=== PATIENT | female | born 1980 | race Asian ===

== ENCOUNTER → 2016-10-30 | Outpatient (CLI) | payer BC ==
[2016-10-30 16:36] LABS: URINE APPEARANCE CLEAR (CLEAR); URINE BILIRUBIN NEG (NEG); URINE COLOR YELLOW; URINE NITRITE NEG (NEG); URINE SPECIFIC GRAVITY 1.027 (1.000-1.030); UROBILINOGEN NEG (NEG)
[2016-10-30 16:46] LABS: MANUAL MICROSCOPIC REQUIRED? NO; REVIEW REQ? NO
[2016-11-02 09:25] LABS: CHLAMYDIA TRACH RNA*** NOT DETECTED (NOT DETECTED); GC (NEIS GONORRHOEAE)RNA** NOT DETECTED (NOT DETECTED)
== END | disposition home or self-care (01) ==
LOC: C.LABSPEC 15:56
PROVIDERS: ATTEND Obstetrics & Gynecology
DX: O09.299 Supervision of pregnancy with other poor reproductive or obstetric history, unspecified trimester (principal)

== ENCOUNTER → 2017-03-26 | Outpatient (CLI) | payer BC ==
[2017-03-26 19:20] LABS: URINE APPEARANCE CLEAR (CLEAR); URINE BILIRUBIN NEG (NEG); URINE COLOR DK YELLOW; URINE EPITHELIAL CELL AUTO >30 /lpf (0-5); URINE NITRITE NEG (NEG); URINE PH 6.5 (4.5-7.5); URINE SPECIFIC GRAVITY 1.024 (1.000-1.030); UROBILINOGEN NEG (NEG)
[2017-03-26 19:27] LABS: MANUAL MICROSCOPIC REQUIRED? NO; REVIEW REQ? NO
== END | disposition home or self-care (01) ==
LOC: C.LABSPEC 17:58
PROVIDERS: ATTEND Obstetrics & Gynecology
DX: Z34.03 Encounter for supervision of normal first pregnancy, third trimester (principal); Z3A.00 Weeks of gestation of pregnancy not specified

== ENCOUNTER 2017-04-27 16:54 | Outpatient (CLI) | payer OTHER ==
[2017-06-11] MEDS ORDERED: SERT25TA PO (09:11)
[2017-06-11] MEDS ORDERED: PRENTAB26 PO (09:11)
[2017-06-11] MEDS ORDERED: INSU100I (09:11)
[2017-06-11] MEDS ORDERED: INSU1INJ23 (09:11)
[2017-06-14] MEDS ORDERED: MISC-836 (07:27)
[2017-06-16] MEDS ORDERED: OXYC-57 PO (07:00)
[2017-06-16] MEDS ORDERED: FERR1TAB23 PO (07:13)
== END 2017-04-27 18:46 | disposition home or self-care (01) ==
LOC: C.OPB 16:54 → C.LD 16:54 → C.OPB 18:46
PROVIDERS: ATTEND Obstetrics & Gynecology
DX: O26.899 Other specified pregnancy related conditions, unspecified trimester (principal); Z3A.00 Weeks of gestation of pregnancy not specified

== ENCOUNTER → 2017-05-19 | Outpatient (CLI) | payer OTHER | END | disposition home or self-care (01) | LOC: C.LABSPEC 17:50 | PROVIDERS: ATTEND Obstetrics & Gynecology | DX: Z34.03 Encounter for supervision of normal first pregnancy, third trimester (principal) ==

== ENCOUNTER 2017-06-10 19:38 | Outpatient (CLI) | payer OTHER ==
[2017-06-11] MEDS ORDERED: INSU1INJ23 ×2 (09:11)
[2017-06-11] MEDS ORDERED: SERT25TA PO ×2 (09:11)
[2017-06-11] MEDS ORDERED: INSU100I ×2 (09:11)
[2017-06-11] MEDS ORDERED: PRENTAB26 PO ×2 (09:11)
== END 2017-06-10 21:08 | disposition home or self-care (01) ==
LOC: C.OPB 19:38 → C.LD 19:38 → C.OPB 21:08
PROVIDERS: ATTEND Obstetrics & Gynecology
DX: Z34.03 Encounter for supervision of normal first pregnancy, third trimester (principal); O24.414 Gestational diabetes mellitus in pregnancy, insulin controlled

== ENCOUNTER 2017-06-11 00:32 | Inpatient (IN) | payer BC, OTHER ==
[~2017-06-11] VITALS: Ht 158.1 cm; Wt 100.9 kg
[2017-06-11] MEDS ORDERED: LACTATED RINGER'S 1000ML 1,000 ML IV PRN (08:00)
[2017-06-11] MEDS ORDERED: LACTATED RINGER'S 1000ML 500 ML IV PRN ×3 (08:05→20:58)
[2017-06-11] MEDS ORDERED: OXYTOCIN 30 UNITS/500ML NSS IV PRN ×2 (08:15→21:00)
--- NOTE | 2017-06-11 08:29 | Medical Student: [facility] ---
Med Student History & Physical Date of Service Jun 11, 2017. Chief Complaint Induction History of Present Illness Source: patient Patient is 36yo 39(+3) weeks estimated due date 06/15 by last menstrual period presenting for labor induction. Simeon balloon catheter dilation performed 2/15 pm. Membranes are unruptured and patient reports no contractions. complicated by gestational diabetes, adequately controlled with meal-time insulin over past 3 weeks, no reported extreme high/ low values. Denies vaginal bleeding outside of some spotting with dilation procedure yesterday. Reports appropriate movement. Plans to donate stem cells post delivery. labs: SMA (-), GBS (-), blood type O+, rubella equivocal. Tdap administered 03/2017. Patient denies any atypical symptoms at this time OB History ANALYTICAL DATA MINER History Menarche age 13 22day cycles and 3-5days of moderate flow +6 lifetime partners with no history of STI No history abnormal pap - last pap 03/2015 Past Medical History Depression and anxiety Past Surgical History Rudyard teeth Family History Non-contributory Social History Smoking Status: Never Smoker Smokeless Tobacco Use: No Alcohol Use: none Drug Use: none Marital Status: Housing status: lives with significant other Occupational Status: employed Allergies Coded Allergies: Avocado (Verified Allergy, Unknown, ., 06/11/17) Pineapple (Verified Allergy, Unknown, ., 06/11/17) Review of Systems Constitutional: No fever Eyes: No worsening of vision Respiratory: No shortness of breath Cardiovascular: No chest pain, No edema Abdomen: No pain, No nausea, No vomiting, No diarrhea, No constipation Musculoskeletal: No swelling, No calf pain Genitourinary - Female: + , No problem reported Neurologic: No balance problems Psychiatric: + depression symptoms (History of), + anxiety, No substance abuse Physical Exam General Appearance: WD/WN, no apparent distress Head: normocephalic, atraumatic Eyes: normal inspection ENT: hearing grossly normal Neck: supple, no JVD, trachea midline Respiratory/Chest: lungs clear, normal breath sounds, no respiratory distress Cardiovascular: regular rate, rhythm, no JVD, no murmur, normal peripheral pulses Abdomen / GI: non tender, soft Fundal Height: Term Extremities: normal inspection, no calf tenderness, normal capillary refill, normal range of motion, non-tender Neurologic/Psych: alert, normal mood/affect, oriented x 3 Skin: normal color, warm/dry Anxious affect, requested number of people in room at delivery to be kept to a minimum Monitoring External Monitor: HR 130s with moderate variability and no evidence of decels - Category I tracing Tocodynamometer: Irregular, minimal contractions Laboratory Results Test 06/11/17 08:00 Assessment and Plan 36yo 39+ week presentation for labor induction. Expectant managment for labor and delivery - Consult anesthesiology for possible epidural placement - Maintenance fluids with lactated ringers - Pitocin for contraction strengthening and regularity - Keep observers to a minimum for delivery Contact provider for - Non-reasurring monitoring: late/early decels that do not change with positioning change, prolonged sinusoidal pattern, prolonged tachycardia >160 or bradycardia <110 - Abnormal maternal vital signs: BP <100/60, HR >120 or <65, Temp >100.9, O2 <92 %
[2017-06-11 08:41] LABS: HEMATOCRIT 34.2 % (37-47); HEMOGLOBIN 11.6 g/dL (12.0-16.0); MEAN CELL VOLUME 92.2 fL (80-100); MEAN CORPUSCULAR HEMOGLOBIN 31.3 pg (25-34); MEAN CORPUSCULAR HGB CONC 33.9 g/dl (32-36); MEAN PLATELET VOLUME 9.6 fL (7.4-10.4); PLATELET COUNT 204 K/uL (130-400); RED CELL DISTRIBUTION WIDTH CV 14.7 % (11.5-14.5); RED CELL DISTRIBUTION WIDTH SD 49.3 fL (36.4-46.3); WHITE BLOOD COUNT 9.48 K/uL (4.8-10.8)
[2017-06-11] MEDS: LACTATED RINGER'S 1000ML 1,000 ML IV SCH ×2 (08:46→18:32)
[2017-06-11] MEDS ORDERED: PRENTAB26 PO ×2 (09:11)
[2017-06-11] MEDS ORDERED: INSU1INJ23 ×2 (09:11)
[2017-06-11] MEDS ORDERED: SERT25TA PO ×2 (09:11)
[2017-06-11] MEDS ORDERED: INSU100I ×2 (09:11)
[2017-06-11 09:15] VITALS: Ht 158.1 cm; Wt 100.9 kg
[2017-06-11] MEDS ORDERED: EpHEDrine SULFATE INJ 50 MG/ML AMP ONE (19:05)
[2017-06-11] MEDS ORDERED: BUPIVACAINE 0.25% 30 ML VIAL ONE (19:05)
[2017-06-11] MEDS ORDERED: FENTANYL 2MCG/ML ROPIV 1.25MG/ML 100ML BAG EPI ONE (19:06)
[2017-06-11] MEDS ORDERED: FENTANYL CITRATE INJ 50 MCG/1 ML 2 ML VIAL ONE (19:06)
[2017-06-11] MEDS ORDERED: NALOXONE HCL INJ 1 MG in SODIUM CHLORIDE 0.9% 1000ML 1,000 ML IV PRN (20:04)
[2017-06-11] MEDS ORDERED: DiphenhydrAMINE HCL 50 MG/ML VIAL IV PRN (20:15)
[2017-06-11] MEDS ORDERED: NALOXONE HCL INJ 0.4 MG/1 ML VIAL/CARP IV PRN (20:15)
[2017-06-11] MEDS ORDERED: EpHEDrine SULFATE INJ 50 MG/ML AMP IV PRN (20:15)
[2017-06-11] MEDS ORDERED: NALBUPHINE HCL INJ 10 MG/ML AMP IV PRN (20:15)
[2017-06-11] MEDS: FENTANYL 2MCG/ML ROPIV 1.25MG/ML 100ML BAG EPI PRN (22:45)
[2017-06-12] MEDS: FENTANYL 2MCG/ML ROPIV 1.25MG/ML 100ML BAG EPI PRN ×4 (01:53→09:30)
[2017-06-12] MEDS ORDERED: GENTAMICIN CONSULT ACTIVE PRN (09:45)
[2017-06-12] MEDS: AMPICILLIN IV 2,000 MG in SODIUM CHLOR 0.9% AD-VAN 100ML 100 ML IV SCH ×3 (10:13→21:30)
[2017-06-12] MEDS: GENTAMICIN INJ 500 MG in DEXTROSE 5% 100ML 100 ML IV SCH (11:11)
[2017-06-12] MEDS ORDERED: CEFAZOLIN IV 3,000 MG in DEXTROSE 5% 50ML 50 ML IV SCH (11:30)
[2017-06-12] MEDS ORDERED: CITRIC ACID/SODIUM CITRATE 15 ML UDC PO ONE (11:30)
[2017-06-12] MEDS ORDERED: CEFAZOLIN IV 3,000 MG in SYRINGE 0 ML IV SCH (11:30)
[2017-06-12] MEDS ORDERED: LIDOCAINE/EPINEPHRINE 2% 1:200,000 20 ML SDV ONE ×2 (11:41→13:37)
[2017-06-12] MEDS ORDERED: MoRPHine SULFATE PF 1 MG/ML 10 ML AMP/VIAL ONE (11:41)
[2017-06-12] MEDS ORDERED: OXYTOCIN INJ 10 UNITS/ML VIAL ONE ×4 (12:41→13:37)
[2017-06-12] MEDS ORDERED: METOCLOPRAMIDE HCL INJ 5 MG/ML 2 ML VIAL ONE (12:42)
[2017-06-12] MEDS ORDERED: ONDANSETRON INJ 2 MG/ML 2 ML VIAL ONE (12:42)
[2017-06-12] MEDS ORDERED: PHENYLEPHRINE 100MCG/ML 5ML SYR ONE ×2 (12:57→13:30)
[2017-06-12] MEDS ORDERED: EpHEDrine SULFATE 50MG/5ML SYR ONE (13:31)
[2017-06-12] MEDS ORDERED: METHYLERGONOVINE MALEATE 0.2 MG/ML AMP ONE (13:37)
[2017-06-12 13:40] LABS: HEMATOCRIT 27.3 % (37-47); HEMOGLOBIN 9.1 g/dL (12.0-16.0)
[2017-06-12] MEDS ORDERED: FENTANYL CITRATE INJ 50 MCG/1 ML 2 ML VIAL ONE (13:43)
[2017-06-12] MEDS ORDERED: MIDAZOLAM HCL 1 MG/ML 2ML VIAL ONE (13:43)
[2017-06-12] MEDS ORDERED: MISOPROSTOL 200 MCG TAB ONE (13:59)
[2017-06-12] MEDS ORDERED: NALOXONE HCL INJ 1 MG in SODIUM CHLORIDE 0.9% 1000ML 1,000 ML IV PRN ×4 (14:27)
[2017-06-12] MEDS ORDERED: NALOXONE HCL INJ 0.08 MG in SYRINGE 1.8 ML IV PRN (14:27)
[2017-06-12] MEDS ORDERED: SODIUM CHLORIDE 0.9% 1000ML 1,000 ML IV PRN (14:27)
[2017-06-12] MEDS ORDERED: LACTATED RINGER'S 1000ML 500 ML IV PRN (14:27)
[2017-06-12] MEDS ORDERED: PHENYLEPHRINE 100MCG/ML 5ML SYR IV PRN (14:30)
[2017-06-12] MEDS ORDERED: ONDANSETRON INJ 2 MG/ML 2 ML VIAL IV PRN ×2 (14:30)
[2017-06-12] MEDS ORDERED: EpHEDrine SULFATE INJ 50 MG/ML AMP IV PRN ×2 (14:30)
[2017-06-12] MEDS ORDERED: MoRPHine SULFATE PF 1 MG/ML 10 ML AMP/VIAL EPI PRN (14:30)
[2017-06-12] MEDS ORDERED: DiphenhydrAMINE HCL 50 MG/ML VIAL IV PRN (14:30)
[2017-06-12] MEDS ORDERED: NALBUPHINE HCL INJ 10 MG/ML AMP IV PRN (14:30)
[2017-06-12] MEDS ORDERED: ATROPINE SULFATE 0.1 MG/ML 5ML SYR IV PRN (14:30)
[2017-06-12] MEDS ORDERED: PROMETHAZINE HCL INJ 12.5 MG in SODIUM CHLORIDE 0.9% 50ML 50 ML IV PRN (14:30)
[2017-06-12] MEDS ORDERED: NO NARCOTICS OR SEDATIVES SCH (14:30)
[2017-06-12] MEDS ORDERED: NALOXONE HCL 0.4 MG/1 ML VIAL/CARP IV PRN (14:30)
[2017-06-12 14:32] LABS: HEMATOCRIT 26.1 % (37-47); HEMOGLOBIN 8.8 g/dL (12.0-16.0); MEAN CELL VOLUME 92.2 fL (80-100); MEAN CORPUSCULAR HEMOGLOBIN 31.1 pg (25-34); MEAN PLATELET VOLUME 9.7 fL (7.4-10.4); PLATELET COUNT 138 K/uL (130-400); RED CELL DISTRIBUTION WIDTH CV 14.4 % (11.5-14.5); RED CELL DISTRIBUTION WIDTH SD 48.7 fL (36.4-46.3); WHITE BLOOD COUNT 15.97 K/uL (4.8-10.8)
[2017-06-12] MEDS ORDERED: CARBOPROST TROMETHAMINE 250 MCG/ML AMP ONE (14:33)
[2017-06-12 14:35] LABS: MEAN CORPUSCULAR HGB CONC 33.7 g/dl (32-36)
--- NOTE | 2017-06-12 14:38 | [facility] Post Operative Brief Note ---
Immediate Operative Summary Operative Date Jun 12, 2017. Pre-Operative Diagnosis Primary low tranverse caesarean section for arrest of descent Post-Operative Diagnosis Primary low tranverse caesarean section for arrest of descent Procedure(s) Performed Primary low tranverse caesarean section for arrest of descent for living female child at [address] Zarate Manager Privacy Surgeon(s) Chiara Joyner, Dr. Villegas Estimated Blood Loss 2000 ml Findings See Below deep left hysterostomy extension, boggy uterus with hemorrhage Specimens Placenta-exam cord blood arterial/venous cord gases Drains ELIAZAR drain, beatty (clear yellow) Anesthesia Type L&D Only EPID Exist Complication(s) hemorrhage, left hysterotomy extension Disposition Accompanied Pt To Recover: no Disposition: L&D
[2017-06-12] MEDS ORDERED: LACTATED RINGER'S 1000ML 1,000 ML IV SCH (14:40)
[2017-06-12 14:43] LABS: PTT PATIENT 32.8 SECONDS (21.0-31.0)
[2017-06-12] MEDS ORDERED: MAGNESIUM HYDROXIDE SUSP 30 ML UDC PO PRN (14:45)
[2017-06-12] MEDS ORDERED: LANOLIN OINT EXT PRN (14:45)
[2017-06-12] MEDS ORDERED: HYDROCORTISONE ACETATE 25 MG SUPP PR PRN (14:45)
[2017-06-12] MEDS ORDERED: BENZOCAINE 20% AER SPR 82.5 GM CAN EXT PRN (14:45)
[2017-06-12] MEDS ORDERED: SUPERCREAM 0.870 % 15GM JAR EXT PRN (14:45)
[2017-06-12 14:53] LABS: BASO % 0.1 %; BASO ABS # 0.01 K/uL (0-0.2); IG# 0.08 K/uL (0.00-0.02); LYMPH % 5.1 %; LYMPH ABS # 0.82 K/uL (1.2-3.4); MONO % 5.3 %; MONO ABS # 0.84 K/uL (0.11-0.59); NEUT ABS # 14.22 K/uL (1.4-6.5)
--- NOTE | 2017-06-12 15:01 | Anesthesia Procedure Note ---
Anesthesia Epidural Removal Nt Date & Time Jun 12, 2017 at 14:59 Vital Signs Pain Intensity: 0.0 Notes Mental Status: alert / awake / arousable, participated in evaluation Nausea / Vomiting: adequately controlled Pain: adequately controlled Airway Patency, RR, SpO2: stable & adequate BP & HR: stable & adequate Hydration State: stable & adequate Neuraxial Anesthesia: was administered Anesthetic Complications: no major complications apparent, pt satisfied with anesthetic care Epidural: removed without complications, with tip intact Notes: Due to bleeding in OR a PT and PTT were checked and came back OK before removal of the epidural catheter.
[2017-06-12] MEDS: MEPERIDINE HCL 25 MG/ML CARP IV PRN ×3 (15:14→23:30)
[2017-06-12] MEDS: CLINDAMYCIN IV 900 MG in DEXTROSE 5% 100ML 100 ML IV SCH ×2 (15:25→22:57)
[2017-06-12] MEDS: OXYTOCIN INJ 30 UNITS in LACTATED RINGER'S 1000ML 1,000 ML IV SCH ×2 (15:27→23:28)
[2017-06-12] MEDS ORDERED: MISOPROSTOL 200 MCG TAB PR STA (15:27)
[2017-06-12] MEDS ORDERED: OXYTOCIN INJ 10 UNITS/ML VIAL IM ONE (15:30)
[2017-06-12 15:37] VITALS: BP 117/67; PULSE 93; TEMP 37.8; O2SAT 99
[2017-06-12] MEDS: SIMETHICONE 80 MG CHEW PO SCH ×2 (17:00→20:18)
--- NOTE | 2017-06-12 19:09 | Anesthesiology Progress Note ---
Anesthesia Post Op Note Date & Time Jun 12, 2017 at 19:09 Vital Signs Vital Signs Past 12 Hours Date Time Temp Pulse Resp B/P (MAP) Pulse Ox O2 Delivery O2 Flow Rate FiO2 06/12/17 15:37 37.8 93 18 117/67 99 Notes Mental Status: alert / awake / arousable, participated in evaluation Pt Amnestic to Procedure: Yes Nausea / Vomiting: adequately controlled Pain: adequately controlled Airway Patency, RR, SpO2: stable & adequate BP & HR: stable & adequate Hydration State: stable & adequate Anesthetic Complications: no major complications apparent
[2017-06-12] MEDS: METHYLERGONOVINE MALEATE 0.2 MG/ML AMP IM SCH (19:58)
[2017-06-12] MEDS: DOCUSATE SODIUM 100 MG CAP PO SCH (20:00)
--- NOTE | 2017-06-12 20:09 | OPERATIVE REPORT ---
DATE OF OPERATION: 06/12/2017 PREOPERATIVE DIAGNOSES: 1. A 36-year-old 2, para 0-0-1-0 at 39 weeks 4 days. 2. Induction of labor secondary to insulin controlled gestational diabetes mellitus. 3. Large for gestational age. 4. Chorioamnionitis. 5. Failure to descend. POSTDELIVERY DIAGNOSES: Same. PROCEDURES PERFORMED: Primary low transverse section and repair of left uterine laceration as extension of hysterotomy incision. SURGEON: Inge Zarate DO ADULT EDUCATOR: Seth Villegas MD; and LYNDON Marin. ESTIMATED BLOOD LOSS: 2000 mL. FINDINGS: Viable female with Apgars 8 and 10, weight 8 pounds 2 ounces. Large left extension of hysterotomy incision and uterine atony after delivery with boggy uterus and hemorrhage. SPECIMENS: Placenta, cord blood, and cord gases. DRAINS: Simeon, clear yellow and ELIAZAR drain. ANESTHESIA: Redosing of epidural. COMPLICATIONS: Left hysterotomy extension and hemorrhage. DISPOSITION: Stable and good to recovery room. INDICATIONS FOR PROCEDURE: The patient is a 36-year-old G2, P0-0-1-0 at 39 weeks 4 days; who had presented yesterday for induction of labor secondary to GDM A2. She had a Simeon bulb placed that was subsequently removed. She then received Pitocin for induction of labor. She progressed to complete with epidural anesthesia and began to push. She pushed for 3+ hours with no progression of station beyond 2+ station. The patient then felt exhausted and requested a section. DESCRIPTION OF PROCEDURE: The patient was taken to the operating room where epidural anesthesia was redosed. She was prepared and draped in the usual sterile fashion in the supine position with a leftward tilt. A timeout was confirmed. She was given 3 grams of Ancef preoperatively. Prior to decision for surgery, she had been given ampicillin and gentamicin for diagnosis of chorioamnionitis. Epidural anesthesia was found to be adequate. A Pfannenstiel skin incision was made with a scalpel and carried through the underlying layer of fascia. The fascia was nicked at midline and this incision was extended bilaterally. The superior aspect of the fascial incision was grasped with [place] clamps x2 and elevated off the underlying rectus abdominis muscles. In a similar fashion, the inferior aspect of the incision was dissected. The rectus abdominis muscles were at midline and the peritoneum was entered bluntly digitally. This incision was extended bilaterally. The bladder blade was placed. A bladder flap was created with Gilbertbaums and Russians. The bladder blade was replaced. The hysterotomy incision was made with the scalpel and the hysterotomy incision was extended bilaterally in a low transverse fashion manually. I asked an assisting nurse in the operating room to use a sterile glove to push upwards on the baby's head to disengage it from the pelvis, this was done. Upon disengagement from the pelvis, the baby began to flip to a transverse position; however, the head was then guided back down into the pelvis. The head was delivered followed by the anterior and posterior shoulders. No nuchal cord was noted. The body was then delivered. The cord was doubly clamped and cut and the baby was handed off to the waiting pediatrics team. The uterus was exteriorized, cleared of all clots and debris, and a very deep left extension of the hysterotomy incision was noted. At this time, I called Dr. Villegas into the operating room to assist as he was already inhouse and able to arrive quickly. Blood was cleared from the field using lap sponges and suctioned, and the edges of the uterine extension were identified and clamped with ring forceps. 0 Vicryl was used to reapproximate this extension in a running stitch. This stitch was then continued to reapproximate the hysterotomy incision in a running locked fashion. Multiple clprob-ig-qknmh stitches of 0 Vicryl were used to imbricate the hysterotomy incision. There was still a large amount of bleeding in the left uterine extension; therefore, multiple cndwwa-kf-ypjbx stitches were placed along the extension. There was incidental bleeding found at the left adnexa, this was clamped with a T-clamp and suture ligated at the edge of the ovary to obtain hemostasis. I do not believe that any ovarian blood supply was traumatized by this suture ligation of its peripheral tissue. The left apex of the hysterotomy incision continued to bleed and [place] stitch was placed on the left aspect of the uterus to obtain better hemostasis by temporarily cutting off blood supply through the uterine vessels. This was successful in obtaining hemostasis. The uterus was then noted to be well, previously had been firm just after delivery, at this time was atonic, and Methergine was given by Anesthesia as well as a dose of Hemabate and 10 units of IM Pitocin was injected directly into the lower uterine segment and stat H&H and Coag labs were drawn. The hysterotomy incision site continued to ooze blood and multiple more ecwtvu-nu-ptowi sutures were placed in an attempt to get bleeding under control. The uterus was then returned to the abdomen and finally excellent hemostasis was observed. The bladder flap was reapproximated over a large piece of Gelfoam in an attempt to provide additional pressure and hemostasis. An additional piece of Gelfoam was placed in the left pelvis overtop the uterine extension. Additional sutures were placed at the right aspect of the bladder flap as now this had begun to bleed. Hemostasis was achieved with multiple chdkez-dr-zynkl. ELIAZAR drain was placed in the pelvis and brought through a separate fascial incision from the main fascial incision and brought out through the skin with a Tamiko clamp. The fascia was then reapproximated using 0 Vicryl in a running stitch. The skin was reapproximated using radha and the ELIAZAR drain was sutured into place using bilateral silk sutures. By this time, blood had arrived from the blood bank and patient was started her first of 2 units of packed red cells. The plan is to recheck patient's labs in 6 hours, continue to watch vital signs and clinical picture closely as she recovers. I attest to the content of the Intraoperative Record and any orders documented therein. Any exception s are noted below.
[2017-06-12 20:37] LABS: PTT PATIENT 28.6 SECONDS (21.0-31.0)
[2017-06-12] MEDS: SERTRALINE HCL 50 MG TAB PO SCH (21:26)
[2017-06-12 21:28] LABS: BASO % 0.1 %; BASO ABS # 0.01 K/uL (0-0.2); HEMATOCRIT 28.8 % (37-47); HEMOGLOBIN 9.9 g/dL (12.0-16.0); IG# 0.05 K/uL (0.00-0.02); LYMPH % 4.8 %; LYMPH ABS # 0.73 K/uL (1.2-3.4); MEAN CELL VOLUME 89.7 fL (80-100); MEAN CORPUSCULAR HEMOGLOBIN 30.8 pg (25-34); MEAN PLATELET VOLUME 9.3 fL (7.4-10.4); MONO % 5.1 %; MONO ABS # 0.78 K/uL (0.11-0.59); NEUT % 89.7 %; NEUT ABS # 13.61 K/uL (1.4-6.5); PLATELET COUNT 139 K/uL (130-400); RED CELL DISTRIBUTION WIDTH CV 14.3 % (11.5-14.5); RED CELL DISTRIBUTION WIDTH SD 47.3 fL (36.4-46.3); WHITE BLOOD COUNT 15.18 K/uL (4.8-10.8)
[2017-06-12 21:29] LABS: MEAN CORPUSCULAR HGB CONC 34.4 g/dl (32-36)
--- NOTE | 2017-06-12 22:42 | Progress Note ---
Progress Note Date of Service Jun 12, 2017. Progress Note Feeling well. Urine output 800cc over the past 3.5 hours, ELIAZAR drain 75cc red fluid. Hgb 9.9, FDP>40. Fibrinogen 300s. Vitals stable, still tachycardic 110s. BP wnl. Will replace coagulation factors - will transfuse 1u FFP. Discussed with patient , all questions answered. She is agreeable.
[2017-06-12 23:52] VITALS: BP 118/56; PULSE 108; TEMP 37.2; O2SAT 98
[2017-06-13 00:08] VITALS: BP 101/55; PULSE 106; TEMP 37.5; O2SAT 93
[2017-06-13 00:23] VITALS: BP 106/57; PULSE 104; TEMP 36.9; O2SAT 94
[2017-06-13 00:53] VITALS: BP 107/59; PULSE 105; TEMP 37.3; O2SAT 95
[2017-06-13 01:21] VITALS: BP 110/59; PULSE 103; TEMP 37; O2SAT 96
[2017-06-13] MEDS: METHYLERGONOVINE MALEATE 0.2 MG/ML AMP IM SCH ×2 (02:14→07:55)
[2017-06-13] MEDS: MEPERIDINE HCL 25 MG/ML CARP IV PRN ×2 (02:38→02:56)
[2017-06-13] MEDS: AMPICILLIN IV 2,000 MG in SODIUM CHLOR 0.9% AD-VAN 100ML 100 ML IV SCH (03:19)
[2017-06-13] MEDS ORDERED: ONDANSETRON INJ 2 MG/ML 2 ML VIAL IV PRN (05:00)
[2017-06-13] MEDS ORDERED: DC INTRASPINAL MORPHINE ONE (05:00)
[2017-06-13] MEDS ORDERED: PROMETHAZINE HCL INJ 25 MG in SODIUM CHLORIDE 0.9% 50ML 50 ML IV PRN (05:00)
[2017-06-13] MEDS ORDERED: DiphenhydrAMINE HCL 50 MG/ML VIAL IV PRN (05:00)
[2017-06-13 05:49] LABS: BASO % 0.2 %; BASO ABS # 0.02 K/uL (0-0.2); EOS % 0.1 %; EOS ABS # 0.01 K/uL (0-0.5); HEMATOCRIT 25.6 % (37-47); HEMOGLOBIN 8.8 g/dL (12.0-16.0); IG# 0.04 K/uL (0.00-0.02); LYMPH % 8.4 %; LYMPH ABS # 1.05 K/uL (1.2-3.4); MEAN CELL VOLUME 90.1 fL (80-100); MEAN CORPUSCULAR HGB CONC 34.4 g/dl (32-36); MEAN PLATELET VOLUME 9.5 fL (7.4-10.4); MONO % 5.4 %; MONO ABS # 0.67 K/uL (0.11-0.59); NEUT % 85.6 %; NEUT ABS # 10.64 K/uL (1.4-6.5); PLATELET COUNT 127 K/uL (130-400); RED CELL DISTRIBUTION WIDTH CV 14.6 % (11.5-14.5); RED CELL DISTRIBUTION WIDTH SD 48.1 fL (36.4-46.3); WHITE BLOOD COUNT 12.43 K/uL (4.8-10.8)
[2017-06-13] MEDS: CLINDAMYCIN IV 900 MG in DEXTROSE 5% 100ML 100 ML IV SCH (06:41)
[2017-06-13] MEDS: OXYCODONE/ACETAMINOPHEN 5-325 TAB PO PRN ×3 (07:51→18:08)
[2017-06-13] MEDS: GENTAMICIN INJ 500 MG in DEXTROSE 5% 100ML 100 ML IV SCH (08:42)
[2017-06-13] MEDS: SIMETHICONE 80 MG CHEW PO SCH ×4 (08:42→19:50)
[2017-06-13] MEDS: DOCUSATE SODIUM 100 MG CAP PO SCH ×2 (08:42→19:50)
--- NOTE | 2017-06-13 09:40 | OB/GYN Progress Note ---
ANALOG DESIGN ENGINEER Progress Note Date of Service Jun 13, 2017. Subjective conversation w/ patient, physical exam Ambulation: limited ambulation Voiding: no voiding problems, beatty catheter in place Passing Gas: No Diet Tolerance: Clear Liquids Lochia: Moderate Feeding Type: Breast Feeding Pain: controlled with meds Notes: 12h overnight urine output: 2800 clear yellow. ELIAZAR drain output overnight 12h: 125cc serosanguinous Review of Systems Constitutional: No problem reported Respiratory: No problem reported Cardiac: No problem reported Breast: No problem reported Abdomen: No problem reported Female : No problem reported Objective Vital Signs Date Time Temp Pulse Resp B/P (MAP) Pulse Ox O2 Delivery O2 Flow Rate FiO2 06/13/17 01:21 37.0 103 16 110/59 96 06/13/17 00:53 37.3 105 16 107/59 95 06/13/17 00:23 36.9 104 16 106/57 94 06/13/17 00:08 37.5 106 16 101/55 93 06/12/17 23:52 37.2 108 18 118/56 98 06/12/17 15:37 37.8 93 18 117/67 99 Physical Exam General Appearance: WELL-APPEARING, NO APPARENT DISTRESS Respiratory/Chest: no respiratory distress Cardiovascular: regular rate, rhythm Abdomen: non tender, soft Fundus: Firm Incision Description: Drainage Circled Extremities: normal inspection Laboratory Results Last 24 Hours Test 06/12/17 13:10 06/12/17 14:20 06/12/17 20:04 06/12/17 21:16 Hemoglobin 9.1 g/dL 8.8 g/dL 9.9 g/dL Hematocrit 27.3 % 26.1 % 28.8 % White Blood Count 15.97 K/uL 15.18 K/uL Red Blood Count 2.83 M/uL 3.21 M/uL Mean Corpuscular Volume 92.2 fL 89.7 fL Mean Corpuscular Hemoglobin 31.1 pg 30.8 pg Mean Corpuscular Hemoglobin Concent 33.7 g/dl 34.4 g/dl Platelet Count 138 K/uL 139 K/uL Mean Platelet Volume 9.7 fL 9.3 fL Neutrophils (%) (Auto) 89.0 % 89.7 % Lymphocytes (%) (Auto) 5.1 % 4.8 % Monocytes (%) (Auto) 5.3 % 5.1 % Eosinophils (%) (Auto) 0.0 % 0.0 % Basophils (%) (Auto) 0.1 % 0.1 % Neutrophils # (Auto) 14.22 K/uL 13.61 K/uL Lymphocytes # (Auto) 0.82 K/uL 0.73 K/uL Monocytes # (Auto) 0.84 K/uL 0.78 K/uL Eosinophils # (Auto) 0.00 K/uL 0.00 K/uL Basophils # (Auto) 0.01 K/uL 0.01 K/uL RDW Standard Deviation 48.7 fL 47.3 fL RDW Coefficient of Variation 14.4 % 14.3 % Immature Granulocyte % (Auto) 0.5 % 0.3 % Immature Granulocyte # (Auto) 0.08 K/uL 0.05 K/uL Prothrombin Time 10.4 SECONDS 10.1 SECONDS Prothromb Time International Ratio 1.0 1.0 Activated Partial Thromboplast Time 32.8 SECONDS 28.6 SECONDS Partial Thromboplastin Ratio 1.3 1.1 Fibrinogen 347 mg/dl Fibrin Degradation Products >40 mcg/ml Test 06/13/17 05:33 White Blood Count 12.43 K/uL Red Blood Count 2.84 M/uL Hemoglobin 8.8 g/dL Hematocrit 25.6 % Mean Corpuscular Volume 90.1 fL Mean Corpuscular Hemoglobin 31.0 pg Mean Corpuscular Hemoglobin Concent 34.4 g/dl Platelet Count 127 K/uL Mean Platelet Volume 9.5 fL Neutrophils (%) (Auto) 85.6 % Lymphocytes (%) (Auto) 8.4 % Monocytes (%) (Auto) 5.4 % Eosinophils (%) (Auto) 0.1 % Basophils (%) (Auto) 0.2 % Neutrophils # (Auto) 10.64 K/uL Lymphocytes # (Auto) 1.05 K/uL Monocytes # (Auto) 0.67 K/uL Eosinophils # (Auto) 0.01 K/uL Basophils # (Auto) 0.02 K/uL RDW Standard Deviation 48.1 fL RDW Coefficient of Variation 14.6 % Immature Granulocyte % (Auto) 0.3 % Immature Granulocyte # (Auto) 0.04 K/uL Red Blood Cell Morphology Unremarkable Assessment and Plan Post-Op Day Number: 1 Continue Routine Care: POD#1 s/p primary low transverse section for failure to descend. Large left uterine laceration, uterine atony and hemorrhage. Patient rec'd 2u PRBC, 1u FFP yesterday. Vitals have been stable, with slight tachycardia. Hgb 8.8 this morning. Patient is feeling well, is in good spirits. Patient is stable, will plan to repeat labs in 6h at lunchtime. If labs ok and patient is still clinically looking good, will plan to move to side of the floor at that time. At that time, will plan to remove beatty catheter. Plan to remove ELIAZAR drain tomorrow. Advance diet today, switch to PO pain medications.
[2017-06-13] MEDS ORDERED: AMPICILLIN IV 2,000 MG in SODIUM CHLOR 0.9% AD-VAN 100ML 100 ML IV ONE (10:45)
[2017-06-13 12:12] LABS: BASO % 0.1 %; BASO ABS # 0.01 K/uL (0-0.2); EOS % 0.2 %; EOS ABS # 0.02 K/uL (0-0.5); HEMATOCRIT 25.7 % (37-47); HEMOGLOBIN 8.9 g/dL (12.0-16.0); IG# 0.05 K/uL (0.00-0.02); LYMPH % 8.1 %; LYMPH ABS # 1.03 K/uL (1.2-3.4); MEAN CELL VOLUME 90.5 fL (80-100); MEAN CORPUSCULAR HEMOGLOBIN 31.3 pg (25-34); MEAN CORPUSCULAR HGB CONC 34.6 g/dl (32-36); MONO % 6.3 %; NEUT % 84.9 %; PLATELET COUNT 142 K/uL (130-400); RED CELL DISTRIBUTION WIDTH CV 14.7 % (11.5-14.5); RED CELL DISTRIBUTION WIDTH SD 48.3 fL (36.4-46.3); WHITE BLOOD COUNT 12.71 K/uL (4.8-10.8)
[2017-06-13 12:30] LABS: ALBUMIN 1.7 gm/dl (3.4-5.0); ALT/SGPT 17 U/L (12-78); AST/SGOT 30 U/L (15-37); BLOOD UREA NITROGEN 6 mg/dl (7-18); CALCIUM 7.8 mg/dl (8.5-10.1); CARBON DIOXIDE 27 mmol/L (21-32); CREATININE 0.45 mg/dl (0.60-1.20); GLUCOSE 98 mg/dl (70-99); POTASSIUM 3.7 mmol/L (3.5-5.1); SODIUM 139 mmol/L (136-145)
[2017-06-13 12:32] LABS: ALKALINE PHOSPHATASE 100 U/L (45-117); TOTAL PROTEIN 4.8 gm/dl (6.4-8.2)
[2017-06-13 12:49] LABS: INR 0.9 (0.9-1.1); PTT PATIENT 31.4 SECONDS (21.0-31.0)
[2017-06-13 15:40] VITALS: BP 131/79; PULSE 109; TEMP 36.9; O2SAT 97
[2017-06-13 19:25] VITALS: BP 142/75; PULSE 116; TEMP 37.5; O2SAT 96
[2017-06-13] MEDS: SERTRALINE HCL 50 MG TAB PO SCH (21:50)
[2017-06-13] MEDS ORDERED: BISACODYL 5 MG TABEC PO ONE (22:00)
[2017-06-14] VITALS (7 sets, daily range): BP systolic 114–137; BP diastolic 70–90; PULSE 88–118; TEMP 36.8–37.8; O2SAT 96–99
[2017-06-14] MEDS: OXYCODONE/ACETAMINOPHEN 5-325 TAB PO PRN ×5 (00:24→22:34)
--- NOTE | 2017-06-14 06:35 | Progress Note ---
Subjective Jun 14, 2017. Subjective conversation w/ patient Ambulation: limited ambulation Voiding: no voiding problems, beatty catheter in place Passing Gas: Yes Diet Tolerance: Regular Diet Lochia: Moderate Feeding Type: Breast Feeding Pain: 3-4/10, improved with analgesia Review of Systems Constitutional: No fever, No chills Respiratory: No shortness of breath Cardiac: No chest pain Abdomen: No nausea, No vomiting Female : No dysuria Objective Vital Signs Date Time Temp Pulse Resp B/P (MAP) Pulse Ox O2 Delivery O2 Flow Rate FiO2 06/14/17 04:15 37.0 101 16 128/82 (97) 96 Room Air 06/14/17 00:20 37.1 115 18 127/85 (99) 96 Room Air 06/14/17 00:20 96 Room Air 06/13/17 19:25 37.5 116 20 142/75 (97) 96 Room Air 06/13/17 15:40 36.9 109 18 131/79 (96) 97 Room Air 06/13/17 15:40 97 Room Air Physical Exam General Appearance: WELL-APPEARING, WD/WN, NO APPARENT DISTRESS Respiratory/Chest: lungs clear, normal breath sounds Cardiovascular: regular rate, rhythm Abdomen: soft Fundus: Firm, Tender, Relation to Umbilicus (at u) Incision Description: Clean, Dry & Intact Extremities: no calf tenderness Laboratory Results Last 24 Hours Test 06/13/17 11:59 White Blood Count 12.71 K/uL Red Blood Count 2.84 M/uL Hemoglobin 8.9 g/dL Hematocrit 25.7 % Mean Corpuscular Volume 90.5 fL Mean Corpuscular Hemoglobin 31.3 pg Mean Corpuscular Hemoglobin Concent 34.6 g/dl Platelet Count 142 K/uL Mean Platelet Volume 9.0 fL Neutrophils (%) (Auto) 84.9 % Lymphocytes (%) (Auto) 8.1 % Monocytes (%) (Auto) 6.3 % Eosinophils (%) (Auto) 0.2 % Basophils (%) (Auto) 0.1 % Neutrophils # (Auto) 10.80 K/uL Lymphocytes # (Auto) 1.03 K/uL Monocytes # (Auto) 0.80 K/uL Eosinophils # (Auto) 0.02 K/uL Basophils # (Auto) 0.01 K/uL RDW Standard Deviation 48.3 fL RDW Coefficient of Variation 14.7 % Immature Granulocyte % (Auto) 0.4 % Immature Granulocyte # (Auto) 0.05 K/uL Red Blood Cell Morphology Unremarkable Prothrombin Time 9.8 SECONDS Prothromb Time International Ratio 0.9 Activated Partial Thromboplast Time 31.4 SECONDS Partial Thromboplastin Ratio 1.2 Fibrinogen 540 mg/dl Fibrin Degradation Products 10-40 mcg/ml Sodium Level 139 mmol/L Potassium Level 3.7 mmol/L Chloride Level 104 mmol/L Carbon Dioxide Level 27 mmol/L Anion Gap 8.0 mmol/L Blood Urea Nitrogen 6 mg/dl Creatinine 0.45 mg/dl Est Creatinine Clear Calc Drug Dose 196.8 ml/min Estimated GFR () > 150.0 Estimated GFR (Non- 130.7 BUN/Creatinine Ratio 13.3 Random Glucose 98 mg/dl Calcium Level 7.8 mg/dl Total Bilirubin 0.3 mg/dl Aspartate Amino Transf (AST/SGOT) 30 U/L Alanine Aminotransferase (ALT/SGPT) 17 U/L Alkaline Phosphatase 100 U/L Total Protein 4.8 gm/dl Albumin 1.7 gm/dl Globulin 3.1 gm/dl Albumin/Globulin Ratio 0.5 Medications Current Inpatient Medications Medications (Trade) Dose Ordered Sig/Taylor Route Start Time Stop Time Status Last Admin Dose Admin Lactated Ringer's 1,000 ml @ 999 mls/hr Q1H1M PRN IV 06/11/17 08:00 07/11/17 07:59 06/11/17 20:55 999 MLS/HR Lactated Ringer's 500 ml @ 999 mls/hr Q31M PRN IV 06/11/17 08:05 07/11/17 08:04 Lactated Ringer's 500 ml @ 999 mls/hr Q31M PRN IV 06/11/17 20:58 07/11/17 20:57 Meperidine HCl (Demerol Inj) 25 mg Q15M PRN IV 06/12/17 14:30 06/13/18 05:00 06/13/17 02:56 25 MG Oxytocin 30 units/ Lactated Ringer's 1,003 ml @ 125 mls/hr Q8H2M IV 06/12/17 15:00 07/12/17 14:59 06/12/17 23:28 125 MLS/HR Lactated Ringer's 1,000 ml @ 125 mls/hr Q8H IV 06/12/17 14:40 07/12/17 14:39 Oxycodone/ Acetaminophen (Percocet 5-325mg Tab) 1 tab Q4H PRN PO 06/13/17 05:00 06/27/17 04:59 06/14/17 04:49 1 TAB Oxycodone/ Acetaminophen (Percocet 5-325mg Tab) 2 tab Q4H PRN PO 06/13/17 05:00 06/27/17 04:59 06/14/17 00:24 2 TAB Promethazine HCl 25 mg/Sodium Chloride 51 ml @ 204 mls/hr Q4H PRN IV 06/13/17 05:00 07/13/17 04:59 Ondansetron HCl (Zofran Inj) 4 mg Q4H PRN IV 06/13/17 05:00 07/13/17 04:59 Docusate Sodium (coLACE CAP) 100 mg BID PO 06/12/17 20:00 07/12/17 19:59 06/13/17 19:50 100 MG Magnesium Hydroxide (Milk Of Magnesia Susp) 30 ml HS PRN PO 06/12/17 14:45 07/12/17 14:44 Cocaine HCl (Supercream 0.870% Cr) BID PRN EXT 06/12/17 14:45 06/26/17 14:44 Lanolin (Lanolin Oint) PRN PRN EXT 06/12/17 14:45 07/12/17 14:44 Hydrocortisone Acetate (Anusol Hc Supp) 25 mg BID PRN MS 06/12/17 14:45 07/12/17 14:44 Benzocaine (Dermoplast Aero Spr) 1 appln PRN PRN EXT 06/12/17 14:45 07/12/17 14:44 Simethicone (Mylicon Chew Tab) 80 mg QID PO 06/12/17 17:00 07/12/17 16:59 06/13/17 19:50 80 MG Diphenhydramine HCl (Benadryl Cap) 25 mg QID PRN PO 06/13/17 09:00 07/13/17 08:59 Diphenhydramine HCl (Benadryl Inj) 25 mg QID PRN IV 06/13/17 05:00 07/13/17 04:59 Sertraline HCl (Zoloft Tab) 25 mg QPM PO 06/12/17 21:00 07/12/17 20:59 06/13/17 21:50 25 MG Assessment and Plan Post-Op Day#: 2 Continue Routine Care: 36 year old s/p due to failure to progress during labour - clinical course complicated by chorioamnionitis, left uterine laceration, uterine atony and subsequent PPH - pt received 2 units prbcs and 1 unit FFP - pt doing well clinically - O+, rubella equivocal, GBS -ve - will require MMR prior to d/c - encourage ambulation and - analgesia prn - vitals reviewed - pt has been tachycardic, last reading 101. Will continue to monitor - Hgb 11.6 -> 8.9. Hgb has remained stable at this level. Resident Physician Supervision Note: I was present with Dr. Cooley during the history and exam. I discussed the case with the resident and agree with the findings and plan as documented in the note. Any exceptions or clarifications are listed here: Doing well. ELIAZAR drain removed this morning without complication. Small amount of serosanguinous output. Steri strips applied on ELIAZAR drain incision. ELIAZAR drain intact on removal. Today, continue ambulation. Continue to advance diet. Patient is aware she will need to be seen at the end of this week for removal of radha in office. Documented By: Inge Zarate Resident Tracking Resident Involvement: Resident Care Provided Care Provided: OB Delivery
[2017-06-14] MEDS ORDERED: MISC-836 ×2 (07:27)
--- NOTE | 2017-06-14 07:47 | Discharge Instructions ---
Discharge Instructions Date of Service Jun 14, 2017. Admission Reason for Admission: Induction Discharge Discharge Diagnosis / Problem: Discharge Goals Goal(s): Routine recovery after Medications Continue Dispensed Medications: supercream, lansinoh Activity Recommendations Activity Limitations: per Instructions/Follow-up section . Instructions / Follow-Up Instructions / Follow-Up ACTIVITY RECOMMENDATIONS: * Gradual return to full activity over the next 2-3 weeks. * No lifting - nothing heavier than baby over the next 2-3 weeks. * Do not engage in vigorous exercise, sexual activity or sports until cleared by your physician. * Do not drive or operate any motorized equipment until cleared by your physician. * You may shower/bathe daily. MEDICATIONS: For discomfort or pain, you may use Acetaminophen (Tylenol), Ibuprofen (Advil), or Naproxen (Aleve) following the package directions. For constipation you may use Colace following the package directions. BREAST CARE: If you are not breast feeding: * Wear a supportive bra 24 hours a day for one to two weeks. * Avoid stimulating your breasts and nipples as much as possible during the first few weeks after delivery. * When taking a shower, have the warm water hit your back, not breasts. * When your breasts feel full, apply ice packs. Usually three to four times a day helps ease the discomfort. * Take a mild pain medication (Tylenol / Motrin) when you are uncomfortable. If breast feeding: * Use breast milk to lubricate nipples. Lansinoh cream may be used for sore nipples. You do not need to remove cream prior to breast feeding. If using a different brand of cream, check the label for directions regarding removal of cream prior to nursing. * Wear a supportive bra. * If having problems with breasts or breast feeding, call a political consultant or your health care provider. SPECIAL CARE INSTRUCTIONS: When you are discharged from the hospital, it is important for you to follow the instructions listed below: * During the first week at home, you should be able to care for yourself and your baby. In addition, the usual light household activities are encouraged. * Limit your activities to the way you feel. Do not try to clean the house or move furniture. Be sensible. * If you actively engage in sports and have done so up until the time of your delivery, you may resume these activities as soon as you feel able. This may take up to one month or even longer. Use good judgment. * Continue to take your vitamins for at least six weeks after the of your baby. * Your diet need not be limited unless you were on a special diet before your delivery. Breast-feeding mothers need around 2500 calories per day and at least 64-80 ounces of fluid per day (8 to 10 glasses). * You should eat foods from the four major food groups. Crash diets or fad diets are to be avoided. Eating lean meats, fresh fruits and vegetables, low-fat dairy products, high fiber foods and a regular exercise program, will help you get back to your pre- weight without putting your health at risk. * Constipation is sometimes a problem after delivery. Take a mild laxative as needed. If breast feeding, Milk of Magnesia is acceptable to use. You may use a suppository or Fleets enema. * A daily shower or tub bath is suggested. Wash incision daily with warm soapy water and pat dry. It doesn't need to be covered unless drainage is present. * A bloody vaginal discharge will usually continue until around four weeks . A small amount of bleeding may continue for as long as six weeks. Vaginal discharge changes from the bright red bleeding after delivery to pink then brownish and finally yellowish-pink before becoming white and disappearing. * Bleeding may increase with activity. Your first period may come in 4-8 weeks. If you are breast feeding, your period may be delayed even longer. * Chaplin (sex) can begin whenever both you and your partner feel comfortable and do not have any form of genital infection. It is recommended that you wait at least six weeks for internal and external healing to occur. If you have questions, please talk to your health care practitioner. A condom should be used to prevent infection and . * Foreplay, gentle intercourse and lubrication is very important the first several times to prevent pain. A water-based lubricant such as K-Y jelly or Astroglide may be used. * If you have RH negative blood and your baby is RH positive, you will receive RHOGAM by injection prior to discharge. The nurse will give you a card to keep with you that has the date and place that you received RHOGAM after delivery. * During your care, you had a Rubella screen done to check for the presence of rubella antibodies in your blood. If your test was negative, you will receive a Rubella vaccine prior to discharge. This vaccine may cause a fever, soreness at the injection site and flu-like symptoms. If these symptoms persist, notify your health care practitioner. is not advised for one month after a Rubella vaccine. * Verbalizes understanding of car seat law as reviewed with patient nursing. * Car Seat hand-out given and reviewed with patient by nursing. * Shaken baby information reviewed with patient by nursing. Call you doctor if: * Heavy bleeding (saturating several pads an hour) or passing clots the size of your fist. * A fever >101 degrees F (38.3 degrees C) on two occasions four hours apart and /or chills. * Unusual pain in the pelvic or vaginal areas. * Call the doctor for any increased redness, drainage or swelling around the incision and any pain unrelieved by prescribed pain medication. * "Baby Blues" lasting longer than two weeks. If you have any questions or concerns, call your health care practitioner at . FOLLOW UP VISIT: * Please call the office at to schedule a 6 week examination. It is important you keep this appointment. It is important for you to make arrangements for either yearly or twice yearly check-ups thereafter. Current Hospital Diet Patient's current hospital diet: Regular OB Diet Discharge Diet Recommended Diet: Regular Diet Procedures Procedures Performed: Primary low tranverse caesarean section for arrest of descent for living female child at 1248 Pending Studies Studies pending at discharge: no Medical Emergencies . Who to Call and When: Medical Emergencies: If at any time you feel your situation is an emergency, please call [phone] immediately. . Non-Emergent Contact Non-Emergency issues call your: Primary Care Provider . . "Provider Documentation" section prepared by Suzan Cooley. . VTE Core Measure Inpt VTE Proph given/why not?: SCD's
[2017-06-14] MEDS: IBUPROFEN 600 MG TAB PO PRN ×3 (09:46→22:34)
[2017-06-14] MEDS: SIMETHICONE 80 MG CHEW PO SCH ×4 (09:46→20:21)
[2017-06-14] MEDS: DOCUSATE SODIUM 100 MG CAP PO SCH ×2 (09:46→20:21)
[2017-06-14] MEDS: SERTRALINE HCL 50 MG TAB PO SCH (20:49)
[2017-06-15 04:05] VITALS: BP 110/75; PULSE 78; TEMP 36.4; O2SAT 99
--- NOTE | 2017-06-15 06:30 | Progress Note ---
Subjective Jun 15, 2017. Subjective conversation w/ patient (Patient seen and examined at bedside) Ambulation: ambulating normally Voiding: no voiding problems Passing Gas: Yes Diet Tolerance: Regular Diet Lochia: Moderate Feeding Type: Breast Feeding Pain: 2-3/10, improved with analgesia Review of Systems Constitutional: No fever, No chills Respiratory: No shortness of breath Cardiac: No chest pain Abdomen: No nausea, No vomiting Female : No dysuria Objective Vital Signs Date Time Temp Pulse Resp B/P (MAP) Pulse Ox O2 Delivery O2 Flow Rate FiO2 06/15/17 04:05 36.4 78 16 110/75 (87) 99 Room Air 06/14/17 22:50 36.9 94 18 114/75 (88) 98 Room Air 06/14/17 22:50 98 Room Air 06/14/17 20:30 37.0 88 18 114/70 (85) 99 Room Air 06/14/17 16:00 97 Room Air 06/14/17 16:00 36.8 98 16 115/78 (90) 97 Room Air 06/14/17 12:00 36.8 110 18 118/78 (91) 97 Room Air 06/14/17 09:45 98 Room Air 06/14/17 09:45 37.8 118 20 137/90 (106) 98 Room Air Physical Exam General Appearance: WELL-APPEARING, WD/WN, NO APPARENT DISTRESS Respiratory/Chest: lungs clear, normal breath sounds Cardiovascular: regular rate, rhythm Abdomen: soft Fundus: Firm, Tender, Relation to Umbilicus (at u) Incision Description: Clean, Dry & Intact Extremities: no calf tenderness Medications Current Inpatient Medications Medications (Trade) Dose Ordered Sig/Taylor Route Start Time Stop Time Status Last Admin Dose Admin Lactated Ringer's 1,000 ml @ 999 mls/hr Q1H1M PRN IV 06/11/17 08:00 07/11/17 07:59 06/11/17 20:55 999 MLS/HR Lactated Ringer's 500 ml @ 999 mls/hr Q31M PRN IV 06/11/17 08:05 07/11/17 08:04 Lactated Ringer's 500 ml @ 999 mls/hr Q31M PRN IV 06/11/17 20:58 07/11/17 20:57 Meperidine HCl (Demerol Inj) 25 mg Q15M PRN IV 06/12/17 14:30 06/13/18 05:00 06/13/17 02:56 25 MG Oxytocin 30 units/ Lactated Ringer's 1,003 ml @ 125 mls/hr Q8H2M IV 06/12/17 15:00 07/12/17 14:59 06/12/17 23:28 125 MLS/HR Lactated Ringer's 1,000 ml @ 125 mls/hr Q8H IV 06/12/17 14:40 07/12/17 14:39 Oxycodone/ Acetaminophen (Percocet 5-325mg Tab) 1 tab Q4H PRN PO 06/13/17 05:00 06/27/17 04:59 06/14/17 22:34 1 TAB Oxycodone/ Acetaminophen (Percocet 5-325mg Tab) 2 tab Q4H PRN PO 06/13/17 05:00 06/27/17 04:59 06/14/17 09:47 2 TAB Promethazine HCl 25 mg/Sodium Chloride 51 ml @ 204 mls/hr Q4H PRN IV 06/13/17 05:00 07/13/17 04:59 Ondansetron HCl (Zofran Inj) 4 mg Q4H PRN IV 06/13/17 05:00 07/13/17 04:59 Docusate Sodium (coLACE CAP) 100 mg BID PO 06/12/17 20:00 07/12/17 19:59 06/14/17 20:21 100 MG Magnesium Hydroxide (Milk Of Magnesia Susp) 30 ml HS PRN PO 06/12/17 14:45 07/12/17 14:44 Cocaine HCl (Supercream 0.870% Cr) BID PRN EXT 06/12/17 14:45 06/26/17 14:44 Lanolin (Lanolin Oint) PRN PRN EXT 06/12/17 14:45 07/12/17 14:44 Hydrocortisone Acetate (Anusol Hc Supp) 25 mg BID PRN IN 06/12/17 14:45 07/12/17 14:44 Benzocaine (Dermoplast Aero Spr) 1 appln PRN PRN EXT 06/12/17 14:45 07/12/17 14:44 Simethicone (Mylicon Chew Tab) 80 mg QID PO 06/12/17 17:00 07/12/17 16:59 06/14/17 20:21 80 MG Diphenhydramine HCl (Benadryl Cap) 25 mg QID PRN PO 06/13/17 09:00 07/13/17 08:59 Diphenhydramine HCl (Benadryl Inj) 25 mg QID PRN IV 06/13/17 05:00 07/13/17 04:59 Sertraline HCl (Zoloft Tab) 25 mg QPM PO 06/12/17 21:00 07/12/17 20:59 06/14/17 20:49 25 MG Ibuprofen (Motrin Tab) 600 mg Q4H PRN PO 06/14/17 07:30 07/14/17 07:29 06/14/17 22:34 600 MG Assessment and Plan Post-Op Day#: 3 Continue Routine Care: 36 year old s/p due to failure to progress during labour - clinical course complicated by chorioamnionitis, left uterine laceration, uterine atony and subsequent PPH - pt received 2 units prbcs and 1 unit FFP - pt doing well clinically - O+, rubella equivocal, GBS -ve - MMR ordered - encourage ambulation and - analgesia prn - vitals reviewed and wnl - Hgb 11.6 -> 8.9. Hgb has remained stable at this level - pt aware she has to be seen in office at end of week for staple removal Resident Physician Supervision Note: I interviewed and examined the patient. Discussed with Dr. Cooley and agree with findings and plan as documented in the note. Any exceptions or clarifications are listed here: Doing well. hgb is stable. Progressing well. Plan d/c tomorrow. Documented By: Deborah Rahman Resident Tracking Resident Involvement: Resident Care Provided Care Provided: OB Delivery
[2017-06-15 08:00] VITALS: BP 122/81; PULSE 83; TEMP 36.4; O2SAT 97
[2017-06-15] MEDS: SIMETHICONE 80 MG CHEW PO SCH ×4 (08:49→19:58)
[2017-06-15] MEDS: DOCUSATE SODIUM 100 MG CAP PO SCH ×2 (08:49→19:57)
[2017-06-15] MEDS: IBUPROFEN 600 MG TAB PO PRN ×4 (08:50→23:59)
[2017-06-15] MEDS: OXYCODONE/ACETAMINOPHEN 5-325 TAB PO PRN ×3 (08:51→19:58)
[2017-06-15 11:37] VITALS: BP 110/72; PULSE 84; TEMP 36.5; O2SAT 98
[2017-06-15] MEDS ORDERED: NURSING VERBAL MED ORDER ONE (13:30)
[2017-06-15] MEDS ORDERED: MEASLES, MUMPS & RUBELLA VIRUS VIAL SQ. ONE (13:45)
[2017-06-15 15:55] VITALS: BP 105/71; PULSE 85; TEMP 36.6
[2017-06-15 19:25] VITALS: BP 123/78; PULSE 91; TEMP 36.9; O2SAT 99
[2017-06-15] MEDS: SERTRALINE HCL 50 MG TAB PO SCH (19:58)
[2017-06-15 23:30] VITALS: BP 107/68; PULSE 84; TEMP 36.6; O2SAT 98
[2017-06-16] MEDS: OXYCODONE/ACETAMINOPHEN 5-325 TAB PO PRN ×4 (00:01→12:35)
[2017-06-16 04:50] VITALS: BP 108/70; PULSE 79; TEMP 36.5; O2SAT 98
[2017-06-16] MEDS: IBUPROFEN 600 MG TAB PO PRN ×3 (05:01→12:35)
--- NOTE | 2017-06-16 06:38 | Progress Note ---
Subjective Jun 16, 2017. Subjective conversation w/ patient (Patient seen and examined at bedside) Ambulation: ambulating normally Voiding: no voiding problems Passing Gas: Yes Diet Tolerance: Regular Diet Lochia: Moderate Feeding Type: Breast Feeding Pain: 2/10, improved with analgesia Review of Systems Constitutional: No fever, No chills Respiratory: No shortness of breath Cardiac: No chest pain Abdomen: No nausea, No vomiting Female : No dysuria Objective Vital Signs Date Time Temp Pulse Resp B/P (MAP) Pulse Ox O2 Delivery O2 Flow Rate FiO2 06/16/17 04:50 36.5 79 16 108/70 (83) 98 Room Air 06/15/17 23:30 36.6 84 16 107/68 (81) 98 Room Air 06/15/17 23:30 98 Room Air 06/15/17 19:25 36.9 91 18 123/78 (93) 99 Room Air 06/15/17 15:55 Room Air 06/15/17 15:55 36.6 85 20 105/71 (82) Room Air 06/15/17 11:37 36.5 84 16 110/72 (85) 98 Room Air 06/15/17 08:00 36.4 83 16 122/81 (95) 97 Room Air 06/15/17 08:00 97 Room Air 06/15/17 08:00 Room Air Physical Exam General Appearance: WELL-APPEARING, WD/WN, NO APPARENT DISTRESS Respiratory/Chest: lungs clear, normal breath sounds Cardiovascular: regular rate, rhythm Abdomen: soft Fundus: Firm, Tender, Relation to Umbilicus (1 below u) Incision Description: Clean, Dry & Intact Extremities: no calf tenderness Medications Current Inpatient Medications Medications (Trade) Dose Ordered Sig/Taylor Route Start Time Stop Time Status Last Admin Dose Admin Lactated Ringer's 1,000 ml @ 999 mls/hr Q1H1M PRN IV 06/11/17 08:00 07/11/17 07:59 06/11/17 20:55 999 MLS/HR Lactated Ringer's 500 ml @ 999 mls/hr Q31M PRN IV 06/11/17 08:05 07/11/17 08:04 Lactated Ringer's 500 ml @ 999 mls/hr Q31M PRN IV 06/11/17 20:58 07/11/17 20:57 Meperidine HCl (Demerol Inj) 25 mg Q15M PRN IV 06/12/17 14:30 06/13/18 05:00 06/13/17 02:56 25 MG Oxytocin 30 units/ Lactated Ringer's 1,003 ml @ 125 mls/hr Q8H2M IV 06/12/17 15:00 07/12/17 14:59 06/12/17 23:28 125 MLS/HR Lactated Ringer's 1,000 ml @ 125 mls/hr Q8H IV 06/12/17 14:40 07/12/17 14:39 Oxycodone/ Acetaminophen (Percocet 5-325mg Tab) 1 tab Q4H PRN PO 06/13/17 05:00 06/27/17 04:59 06/16/17 05:00 1 TAB Oxycodone/ Acetaminophen (Percocet 5-325mg Tab) 2 tab Q4H PRN PO 06/13/17 05:00 06/27/17 04:59 06/14/17 09:47 2 TAB Promethazine HCl 25 mg/Sodium Chloride 51 ml @ 204 mls/hr Q4H PRN IV 06/13/17 05:00 07/13/17 04:59 Ondansetron HCl (Zofran Inj) 4 mg Q4H PRN IV 06/13/17 05:00 07/13/17 04:59 Docusate Sodium (coLACE CAP) 100 mg BID PO 06/12/17 20:00 07/12/17 19:59 06/15/17 19:57 100 MG Magnesium Hydroxide (Milk Of Magnesia Susp) 30 ml HS PRN PO 06/12/17 14:45 07/12/17 14:44 Cocaine HCl (Supercream 0.870% Cr) BID PRN EXT 06/12/17 14:45 06/26/17 14:44 Lanolin (Lanolin Oint) PRN PRN EXT 06/12/17 14:45 07/12/17 14:44 Hydrocortisone Acetate (Anusol Hc Supp) 25 mg BID PRN PA 06/12/17 14:45 07/12/17 14:44 Benzocaine (Dermoplast Aero Spr) 1 appln PRN PRN EXT 06/12/17 14:45 07/12/17 14:44 Simethicone (Mylicon Chew Tab) 80 mg QID PO 06/12/17 17:00 07/12/17 16:59 06/15/17 19:58 80 MG Diphenhydramine HCl (Benadryl Cap) 25 mg QID PRN PO 06/13/17 09:00 07/13/17 08:59 Diphenhydramine HCl (Benadryl Inj) 25 mg QID PRN IV 06/13/17 05:00 07/13/17 04:59 Sertraline HCl (Zoloft Tab) 25 mg QPM PO 06/12/17 21:00 07/12/17 20:59 06/15/17 19:58 25 MG Ibuprofen (Motrin Tab) 600 mg Q4H PRN PO 06/14/17 07:30 07/14/17 07:29 06/16/17 05:01 600 MG Assessment and Plan Post-Op Day#: 4 Continue Routine Care: 36 year old s/p due to failure to progress during labour - clinical course complicated by chorioamnionitis, left uterine laceration, uterine atony and subsequent PPH - pt received 2 units prbcs and 1 unit FFP - pt doing very well clinically - O+, rubella equivocal, GBS -ve - MMR ordered - analgesia prn - vitals reviewed and wnl - Hgb stable - pt ready for d/c today - will review d/c instructions - pt aware she has to be seen in office at end of week for staple removal Resident Physician Supervision Note: I interviewed and examined the patient. Discussed with Dr. Cooley and agree with findings and plan as documented in the note. Any exceptions or clarifications are listed here: [None] Documented By: Deven Peña Resident Tracking Resident Involvement: Resident Care Provided Care Provided: OB Delivery
[2017-06-16] MEDS ORDERED: OXYC-57 PO ×2 (07:00)
[2017-06-16] MEDS ORDERED: FERR1TAB23 PO ×2 (07:13)
[2017-06-16 08:55] VITALS: BP 115/80; PULSE 64; TEMP 36.4; O2SAT 98
[2017-06-16] MEDS: DOCUSATE SODIUM 100 MG CAP PO SCH (09:06)
[2017-06-16] MEDS: SIMETHICONE 80 MG CHEW PO SCH ×2 (09:07→12:34)
[2017-06-16 14:36] VITALS: BP_DIAS 80; PULSE 64; TEMP 36.4
== END 2017-06-16 14:40 | disposition home or self-care (01) | DRG 765 ==
LOC: C.LD 07:38 → C.OBG 06-13 14:57
PROVIDERS: ADMIT Obstetrics & Gynecology; ATTEND Obstetrics & Gynecology
PROC: 3E033VJ Introduction of Other Hormone into Peripheral Vein, Percutaneous Approach (ICD-10-PCS; 2017-06-11)
PROC: 10D00Z1 Extraction of Products of Conception, Low, Open Approach (ICD-10-PCS; principal; 2017-06-12 11:53)
PROC: 0W3N0ZZ Control Bleeding in Female Perineum, Open Approach (ICD-10-PCS; principal; 2017-06-12 11:53)
DX: O32.4XX0 Maternal care for high head at term, not applicable or unspecified (principal); O41.1230 Chorioamnionitis, third trimester, not applicable or unspecified; O72.1 Other immediate postpartum hemorrhage; O71.81 Laceration of uterus, not elsewhere classified; O24.424 Gestational diabetes mellitus in childbirth, insulin controlled; O75.81 Maternal exhaustion complicating labor and delivery; O36.63X0 Maternal care for excessive fetal growth, third trimester, not applicable or unspecified; O99.344 Other mental disorders complicating childbirth; F32.9 Major depressive disorder, single episode, unspecified; F41.9 Anxiety disorder, unspecified; Z3A.39 39 weeks gestation of pregnancy; Z79.899 Other long term (current) drug therapy; Z87.59 Personal history of other complications of pregnancy, childbirth and the puerperium; Z37.0 Single live birth

== ENCOUNTER → 2017-07-26 | Outpatient (CLI) | payer OTHER ==
[~2017-07-26] MED LIST: FERR1TAB23 PO; MISC-836; OXYC-57 PO; PRENTAB26 PO; SERT25TA PO
== END | disposition home or self-care (01) ==
LOC: C.PAPS 13:17
PROVIDERS: ATTEND Obstetrics & Gynecology
DX: Z39.2 Encounter for routine postpartum follow-up (principal)

== ENCOUNTER → 2017-08-17 | Outpatient (CLI) | payer OTHER | END | disposition home or self-care (01) | LOC: C.LAB 14:22 | PROVIDERS: ATTEND Physician Assistant | DX: N91.2 Amenorrhea, unspecified (principal) ==